=== PATIENT | male | born 1960 | race Caucasian/White ===

== ENCOUNTER 2021-10-03 15:42 | Outpatient (CLI) | payer BC, SELFPAY ==
[2021-10-03 22:11] LABS: PSA Screen* 0.71 ng/mL (0.10-4.00)
== END 2021-10-03 15:43 | disposition home or self-care (01) ==
PROVIDERS: PCP Family Medicine; Visit Provider Family Medicine
DX: E03.9 Hypothyroidism, unspecified (principal); Z12.5 Encounter for screening for malignant neoplasm of prostate
CPT/HCPCS: 84153; 84443

== ENCOUNTER 2021-10-05 09:34 | Outpatient (CLI) | payer OTHER, BC, SELFPAY ==
[2021-10-05 13:15] LABS: Albumin* 4.5 g/dL (3.3-5.0); Chloride* 105 mmol/L (96-114); Potassium* 4.4 mmol/L (3.6-5.1); Sodium* 137 mmol/L (135-149)
[2021-10-05 13:17] LABS: Bilirubin Total* 0.7 mg/dL (0.1-1.5); Cholesterol* 175 mg/dL (90-199); Estimated Glomerular Filt Rate 84.57
[2021-10-05 13:18] LABS: Alanine Aminotransferase* 30 U/L (4-50); Alkaline Phosphatase* 104 U/L (40-150); Aspartate Amino Transferase* 22 U/L (12-35); Blood Urea Nitrogen* 18 mg/dL (7-30); Carbon Dioxide* 24 mmol/L (20-32); Glucose* 102 mg/dL (60-115); Total Protein* 6.9 g/dL (6.0-8.3); Triglycerides* 63 mg/dL (40-149)
[2021-10-05 13:19] LABS: Calcium* 9.9 mg/dL (8.4-10.6); HDL Cholesterol* 70 mg/dL (>=40); LDL Cholesterol Calculated 92 mg/dL (<100)
== END 2021-10-05 09:35 | disposition home or self-care (01) ==
PROVIDERS: PCP Family Medicine; Visit Provider Family Medicine
DX: Z00.00 Encounter for general adult medical examination without abnormal findings (principal); E03.9 Hypothyroidism, unspecified; R35.1 Nocturia; N40.1 Benign prostatic hyperplasia with lower urinary tract symptoms; E78.00 Pure hypercholesterolemia, unspecified; Z12.5 Encounter for screening for malignant neoplasm of prostate
CPT/HCPCS: 80053; 80061